=== PATIENT | male | born 1985 | race Hispanic/Latino ===

== ENCOUNTER → 2018-05-22 | Day surgery (SDC) | payer BC ==
[~2018-05-22] MED LIST: FENTANYL CITRATE/PF 100MCG/2 ML INJ ONE; KETAMINE HCL INJ 50 MG/ML 10 ML VIAL ONE; LIDOCAINE HCL 2% LOCAL INJ 5 ML SDV VIAL INJ ONE; MIDAZOLAM HCL 2 MG/2 ML VIAL ONE; PROPOFOL IV EMULSION 10 MG/ML 50 ML VIAL ONE
--- OUTSIDE RECORDS SUMMARY | 2018-05-22 05:30 | XMS REPORT | Continuity of Care Document ---
Author Author [facility] Interface Address Unknown Phone Unavailable Problems Problem Status Onset Date Classification Date Reported Comments Source Influenza-like symptoms 08/04/2017 Diagnosis 08/04/2017 [facility] Pain in throat 08/04/2017 Diagnosis 08/04/2017 [facility] Headache 08/04/2017 Diagnosis 08/04/2017 [facility] Body mass index 30+ - obesity 08/04/2017 Diagnosis 08/04/2017 [facility] Tachycardia 08/04/2017 Diagnosis 08/04/2017 [facility] Medications Medication Details Route Status Patient Instructions Ordering Provider Order Date Source Brompheniramine Maleate 0.4 MG/ML / Dextromethorphan Hydrobromide 2 MG/ML / Pseudoephedrine Hydrochloride 6 MG/ML Oral Solution [Bromfed DM] Bromfed DM 2 mg-30 mg-10 mg/5 mL syrup Take 10 mL every 4-6 hours by oral route as needed for 6 days. Active [facility] Allergies, Adverse Reactions, Alerts Substance Category Reaction Severity Reaction type Status Date Reported Comments Source Immunizations Immunization Date Given Site Status Last Updated Comments Source Results Order Name Results Value Reference Range Date Interpretation Comments Source RESULT negative 08/04/2017 [facility] SWAB LOCATION Left and Right tonsillar pillars 08/04/2017 [facility] Influenza A negative 08/04/2017 [facility] Influenza B negative 08/04/2017 [facility] Vital Signs Vital Sign Value Date Comments Source Diastolic (mm Hg) 72 08/04/2017 [facility] Height 71 08/04/2017 [facility] Systolic (mm Hg) 118 08/04/2017 [facility] Weight 260 08/04/2017 [facility] Encounters Location Location Details Encounter Type Encounter Number Reason For Visit Attending Provider ADM Date DC Date Status Source [place] - [facility] - [id number]-C: [address] [place] [address], Ph. [id number] Cecy Jose 08/04/2017 [facility] Procedures Procedure Code Date Perfomer Comments Source
--- OUTSIDE RECORDS SUMMARY | 2018-05-22 05:30 | XMS REPORT | Encounter Summary ---
Author Organization Unknown Address [address] [place] [id number] Phone [phone] Reason for Visit Medical Complaint Instructions 1. Influenza-like symptoms Bromfed DM 2 mg-30 mg-10 mg/5 mL syrup rapid flu (A+B) 2. Pain in throat sore throat: care instructions rapid strep group A, throat 3. Headache headache: care instructions 4. Body mass index 30+ - obesity 5. Tachycardia Discussion Note Pt is in NAD; Verbalizes understanding of all instructions with no questions at this time. Plan of Care Patient Instructions Use over the counter chloraseptic spray/lozenges as per package insert for sore throat. Take fluticasone as needed for congestion. [place] one spray in each nostril twice a day. Take a warm, steamy shower, blow your nose thereafter, and spray in each nostril. Tilt your head up for about 10 seconds and breath through your mouth. Do not sniff or snort the medication in or else the medication will go to your throat and not be absorbed appropriately. Take Bromfed DM for cough as directed. Alternate with Ibuprofen and acetaminophen every 4hrs as needed for pain/fever/headache. Proper hydration and rest. Return to work/school if free of fever for 24-hrs. Do not share any utensils/cups, no kissing, recommend hand washing after coughing/sneezing/blowing nose and cover face when you do so. Take medications as prescribed. Return to clinic or follow up with your PCP within 2- 3 days if symptoms worsen as discussed. Recommend follow a low fat/carb diet and exercise 30-45 mins/d 3-4 days a week. In case of an emergency call 911 or go to nearest ER. Reminders Provider Appointments None recorded. Lab Rapid Flu (A+B) 08/04/2017 [facility] Rapid Strep Group a, Throat 08/04/2017 [facility] Referral None recorded. Procedures None recorded. Surgeries None recorded. Imaging None recorded. Medications Name Start Date Bromfed DM 2 mg-30 mg-10 mg/5 mL syrup Take 10 mL every 4-6 hours by oral route as needed for 6 days. Medications Administered None recorded. Vitals Height Weight BMI Blood Pressure 5 ft 11 in 260 lbs 36.3 kg/m2 118/72 mm[Hg] Lab Results Date Name Specimen Result Interpretation Description Value Range Status Address Rapid Strep Group a, Throat Result negative [facility]: [address] [place] [address] Swab Location Left and Right tonsillar pillars [facility]: [address] [place] [address] Rapid Flu (A+B) Influenza a negative [facility]: [address] [place] [address] Influenza B negative [facility]: [address] [place] [address] Allergies Code Code System Name Reaction Severity Status Onset NKDA Problems None recorded. Procedures None recorded. Vaccine List None recorded. Social History Smoking Status Current Every Day Smoker Past Encounters 08/04/2017 Influenza-like Symptoms; Pain in Throat; Headache; Body Mass Index 30+ - Obesity; Tachycardia Cecy Jose, [employer]: [address] [place] [address], Ph. History of Present Illness [id number] Reported By: Patient HPI: Quality: symptoms worse during the day. Duration: 2 days. Severity: highest temperature 100. Onset/Timing: first recorded today in clinic. Context: no ill contacts, no tick/insect bites, no recent travel, no new medications. Associated Symptoms: no fever/chills, no muscle aches, no rash, no lethargy, headache; sore throat, fever and body aches. Modifying Factors nothing gives relief Review of Systems:ROS as noted in the HPI Review of Systems Basic Reported By: Patient Physical Exam Adult Basic, Adult Female Complete, Adult Male Complete Reported By: Patient Constitutional: General Appearance: healthy-appearing, well-nourished, well-developed. Level of Distress: NAD. Ambulation: ambulating normally Psychiatric: Mental Status: active and alert. Orientation: to time, to place, to person Eyes: Lids and Conjunctivae: non-injected, no discharge, no pallor. Pupils: PERRLA. Corneas: grossly intact. EOM: EOMI. Lens: clear Cmw-[id number]-Ciybk-Throat: Ears: no lesions on external ear, no outer ear tenderness, EACs clear, TMs clear. Hearing: no hearing loss. Nose: no lesions on external nose, nares patent, no septal deviation, nasal passages clear, no sinus tenderness, nasal discharge--rhinorrhea, post nasal drip. Lips, Teeth, and Gums: no mouth or lip ulcers, no bleeding gums, normal dentition. Oropharynx: moist mucous membranes, no erythema, no exudates, tonsils not enlarged Neck: Neck: supple. Lymph Nodes: no cervical LAD Lungs: Respiratory effort: no dyspnea, no tachypnea, no use of accessory muscles, no intercostal retractions. Auscultation: breath sounds normal, good air movement Cardiovascular: Heart Auscultation: no murmurs, tachycardia Neurologic: Gait and Station: normal gait, normal station. Cranial Nerves: grossly intact. Sensation: grossly intact. Reflexes: DTRs 2+ bilaterally throughout. Coordination and Cerebellum: [id number] intact, no tremor
[2018-05-22 11:05] VITALS: BP 124/63
--- NOTE | 2018-05-22 11:50 | Operative Report ---
DATE OF PROCEDURE: May 22, 2018 REFERRING PHYSICIAN: Carito Chávez MD PROCEDURE PERFORMED: Colonoscopy and polypectomy. INDICATIONS FOR COLONOSCOPY: Colorectal cancer screening, father and mother with colon cancer. MEDICATION: Patient was done under MAC. Please see anesthesiologist's note. PROCEDURE: With the patient in the left lateral decubitus position, the flexible fiberoptic Olympus colonoscope was inserted into the rectum with ease and advanced all the way to the cecum. Mucosa overlying the cecum grossly appeared to be within normal limits. There was some minute nodularity adjacent to the ileocecal valve noted, and that was hot biopsied. The rest of the ascending colon appeared to be within normal limits. The transverse colon also was within normal limits. One polyp was snared and 1 polyp was hot biopsied from the descending colon. One polyp was hot biopsied from the sigmoid colon. A single diverticulum was noted in the descending colon. Two polyps were hot biopsied from the rectum. The scope was then retroflexed into the distal rectum, and small internal hemorrhoids were noted, none of which was actively bleeding. The scope was then straightened out. The scope was subsequently withdrawn. Patient tolerated the procedure well. IMPRESSION 1. Minute nodularity, cecum next to the ileocecal valve, hot biopsied. 2. Descending colon polyps times 2, one snared and one hot biopsied. 3. Single diverticulum, descending colon. 4. Sigmoid colon polyp times 1, hot biopsied. 5. Rectal polyps times 2, hot biopsied. 6. Internal hemorrhoids, none actively bleeding. PLAN: Follow up histology. Initiate high-fiber, low-fat diet. Initiate high-fiber supplement. Patient might benefit from a followup colonoscopy in 1 to 2 years considering his very strong family history and his having colon polyps on his 1st endoscopic evaluation. Job#: [id number] cc:CARITO CHÁVEZ MD
== END | disposition home or self-care (01) ==
LOC: OR 05:27
PROVIDERS: ATTEND Internal Medicine Gastroenterology
DX: Z12.11 Encounter for screening for malignant neoplasm of colon (principal); D12.4 Benign neoplasm of descending colon; K62.1 Rectal polyp; K63.89 Other specified diseases of intestine; K57.30 Diverticulosis of large intestine without perforation or abscess without bleeding; K64.8 Other hemorrhoids; R19.01 Right upper quadrant abdominal swelling, mass and lump; R03.0 Elevated blood-pressure reading, without diagnosis of hypertension; E66.01 Morbid (severe) obesity due to excess calories; F17.210 Nicotine dependence, cigarettes, uncomplicated; Z68.41 Body mass index [BMI] 40.0-44.9, adult; Z80.0 Family history of malignant neoplasm of digestive organs
CPT/HCPCS: 45384; 45385; J2001; J2250; 45378

== ENCOUNTER → 2018-06-17 | Outpatient (CLI) | payer BC ==
--- NOTE | 2018-06-17 12:24 | Diagnostic Imaging Report ---
Examination: Limited abdominal ultrasound. Clinical indication: Palpable lump right upper quadrant. Comparison examination: None. Technique: Transverse and longitudinal sonographic images of the area of interest in the right upper quadrant were obtained. Comparison images of the left upper quadrant were also obtained. Findings: In the area of clinical concern there is an ovoid, lobulated mass of mixed echogenicity, though predominantly hypoechoic with internal echogenic septations measuring 5.5 x 5.3 x 1.4 cm. Overall similar sonographic features to adjacent subcutaneous fat. Impression: Probable superficial lipoma in the right upper quadrant abdominal wall. MRI with and without contrast may be obtained to assess for suspicious features. Signed by: Dr. James Lr M.D. on 06/17/2018 12:20 PM
== END ==
LOC: US 11:45
PROVIDERS: ATTEND Internal Medicine Gastroenterology
DX: R19.01 Right upper quadrant abdominal swelling, mass and lump (principal)
CPT/HCPCS: 76705

== ENCOUNTER → 2022-12-09 | Outpatient (CLI) | payer BC | LOC: RAD 14:21 | PROVIDERS: ATTEND Internal Medicine | DX: M25.562 Pain in left knee (principal) ==